=== PATIENT | female | born 1935 | race Caucasian/White ===

== ENCOUNTER → 2019-10-18 | Outpatient (CLI) | payer MEDICARE | END | disposition home or self-care (01) | LOC: OIH 14:59 | PROVIDERS: ATTEND Internal Medicine | DX: M51.16 Intervertebral disc disorders with radiculopathy, lumbar region (principal) | CPT/HCPCS: 72100 ==

== ENCOUNTER 2022-06-18 15:58 | Emergency (ER) | payer MEDICARE, OTHER ==
[~2022-06-18] VITALS: Ht 154.9 cm; Wt 55.8 kg
[2022-06-18 16:27] LABS: BASOPHILS % (AUTO) 0.4 % (0.0-5.0); EOSINOPHILS % (AUTO) 0.6 % (0.0-8.0); HEMATOCRIT 36.2 % (36-48); LYMPHOCYTES % (AUTO) 10.5 % (21.0-51.0); MEAN CORPUSCULAR HEMOGLOBIN 31.1 pg (27.0-33.0); MEAN CORPUSCULAR HGB CONC 32.9 g/dL (32.0-36.0); MEAN CORPUSCULAR VOLUME 94.5 fL (79-99); MONOCYTES % (AUTO) 9.7 % (3.0-13.0); NEUTROPHILS % (AUTO) 78.3 % (40.0-77.0); PLATELET COUNT (AUTO) 337 K/uL (130-400); RED BLOOD CELL COUNT(AUTO) 3.83 MIL/uL (4.00-5.50); RED CELL DISTRIBUTION WIDTH 13.2 % (11.0-15.5); WHITE BLOOD COUNT (AUTO) 14.8 K/uL (4.8-10.8)
[2022-06-18] MEDS ORDERED: LACTATED RINGERS 1000ML 1,000 ML IV ONE (16:30)
[2022-06-18 16:37] LABS: CREATININE 0.8 mg/dL (0.5-1.5); POTASSIUM 3.4 mmol/L (3.5-5.1)
[2022-06-18 16:38] LABS: INR 0.96 (0.85-1.15); PROTHROMBIN TIME 10.5 SEC (9.6-11.6)
[2022-06-18 16:39] LABS: PARTIAL THROMBOPLASTIN TIME 22.2 SEC (26.3-35.5)
[2022-06-18 16:47] LABS: ALBUMIN 3.4 g/dL (3.5-5.0); MAGNESIUM 1.8 mg/dL (1.80-2.40); TOTAL PROTEIN, SERUM 6.7 g/dL (6.0-8.3)
[2022-06-18 16:55] LABS: B-TYPE NATRIURETIC PEPTIDE 87 pg/mL (0-100)
[2022-06-18 17:08] LABS: APPEARANCE,URINE CLOUDY (CLEAR); BILIRUBIN,URINE NEGATIVE (NEGATIVE); COLOR,URINE YELLOW (YELLOW); GLUCOSE, URINE (UA) NEGATIVE (NEGATIVE); KETONES,URINE NEGATIVE (NEGATIVE); LEUKOCYTE ESTERASE ,URINE 25 Leu/uL (NEGATIVE); NITRATE,URINE NEGATIVE (NEGATIVE); OCCULT BLOOD,URINE NEGATIVE (NEGATIVE); PROTEIN,URINE NEGATIVE (NEGATIVE); UROBILINOGEN,URINE 0.2 mg/dL (0.2-1.0)
[2022-06-18 17:43] LABS: BACTERIA,URINE FEW /HPF (None Seen); OTHER CASTS, URINE 1 /LPF (None Seen); SQUAMOUS EPITHELIAL CELL,UR RARE /HPF (0-2); YEAST,URINE BUDDING RARE /HPF (None Seen)
[2022-06-18] MEDS ORDERED: IOHEXOL 350 MG/ML 100ML INFUS..BTL IV ONE (18:43)
[2022-06-18 19:43] VITALS: BP 139/98
[2022-06-18] MEDS ORDERED: CEFTRIAXONE 1G VIAL IVP ONE (20:00)
== END 2022-06-18 20:25 | disposition home or self-care (01) ==
LOC: EDH 15:58
DX: R55 Syncope and collapse (principal); I10 Essential (primary) hypertension; Z90.710 Acquired absence of both cervix and uterus; Z98.890 Other specified postprocedural states; Z79.01 Long term (current) use of anticoagulants
CPT/HCPCS: 99285; 70450; 96374; 96361; 71045; 82550; 83735; 83874; 84484; 80053; 83880; 85025; 85378; 85610; 85730; 87088; 81001; 36415; 71270; 93005; J7120 ×2; J0696; Q9967

== ENCOUNTER → 2025-04-28 | Outpatient (CLI) | payer OTHER ==
--- NOTE | 2025-04-28 20:19 | HMCIMG ---
STUDY: X-RAY OF THE LUMBAR SPINE, 3 VIEWS HISTORY: Low back pain. TECHNIQUE: AP, lateral, and additional views of the lumbar spine are submitted for interpretation. COMPARISON: None provided. FINDINGS: Bones and joints: Diffuse osteopenia. Mild levoscoliosis of the lumbar spine. Mild chronic compression deformities involving the lumbar vertebral bodies without acute fracture line. Moderate to severe multilevel degenerative changes with anterior and marginal osteophytosis and intervertebral disc height loss at multiple levels. Sacrum and sacroiliac joints: Mild bilateral sacroiliitis with subchondral sclerosis and mild joint space irregularity. Soft tissues: Visualized paraspinal soft tissues are unremarkable. Mild aortic vascular calcifications are noted. IMPRESSION: * Moderate to severe multilevel lumbar spondylosis with diffuse disc height loss and osteophytosis. * Mild chronic compression deformities of the lumbar vertebral bodies on a background of osteopenia, without radiographic evidence of acute fracture. * Mild levoscoliosis of the lumbar spine. * Mild bilateral sacroiliitis and aortic calcifications. * MRI of the lumbar spine is suggested for further evaluation of the spinal canal and neural foramina if clinically indicated, particularly in the context of suspected spinal stenosis. /Halls
== END | disposition home or self-care (01) ==
LOC: RAH 11:49
PROVIDERS: ATTEND Internal Medicine
DX: M48.56XA Collapsed vertebra, not elsewhere classified, lumbar region, initial encounter for fracture (principal); M47.816 Spondylosis without myelopathy or radiculopathy, lumbar region; M25.78 Osteophyte, vertebrae; M85.88 Other specified disorders of bone density and structure, other site; M46.1 Sacroiliitis, not elsewhere classified; M54.50 Low back pain, unspecified; M41.86 Other forms of scoliosis, lumbar region; I70.0 Atherosclerosis of aorta
CPT/HCPCS: 72100